=== PATIENT | female | born 1975 | race Caucasian/White ===

== ENCOUNTER 2018-03-26 06:11 | Outpatient (CLI) | payer BC ==
[~2018-03-26] VITALS: Ht 177.8 cm; Wt 136.1 kg
[~2018-03-26 06:11] MED LIST: ACHYD1T PO; ALPR.25T PO; CALC1TAB88 PO; CPR500T PO; IBP800T PO; METR500T PO; NITR100C3 PO; PHEN37.555 PO; PREN1TAB14 PO; SPRINTEC PO
[2018-03-26] MEDS ORDERED: OMG1KC PO (13:54)
[2018-03-26] MEDS ORDERED: FOLI0.8C PO (13:54)
[2018-03-26] MEDS ORDERED: MULT-35 PO (13:54)
[2018-03-26] MEDS ORDERED: LOSA50TA36 PO (13:54)
[2018-03-26] MEDS ORDERED: HYDR25TA4 PO (13:54)
== END 2018-03-26 14:11 ==
LOC: PREOP 06:11
PROVIDERS: ATTEND Otolaryngology Otolaryngology/Facial Plastic Surgery
DX: Z01.818 Encounter for other preprocedural examination (principal)

== ENCOUNTER 2018-03-29 05:52 | Day surgery (SDC) | payer BC ==
[~2018-03-29] VITALS: Ht 177.8 cm; Wt 136.1 kg
[~2018-03-29 05:52] MED LIST changes: +FOLI0.8C PO; +HYDR25TA4 PO; +LOSA50TA36 PO; +MULT-35 PO; +OMG1KC PO
--- OUTSIDE RECORDS SUMMARY | 2018-03-29 05:56 | XMS REPORT ---
Author SHAZIA Granger [facility] Address [address] [facility] [address] [place], [place] [id number] Care Team Providers Care Metal Furniture Panel Coverer Name Role Phone SHAZIA OLIVEIRA PCP Unavailable SHAZIA OLIVEIRA PreferredProvider Unavailable Allergies and Adverse Reactions Name Reaction Notes NO KNOWN DRUG ALLERGIES Plan of Treatment Planned Activity Comments Planned Date Planned Time Plan/Goal CBC with Differential 03/16/2017 12:00 AM CMP 03/16/2017 12:00 AM .Lipid Panel 03/16/2017 12:00 AM Medications Active Name Start Date Estimated Completion Date SIG Comments methyldopa 250 mg oral tablet Zyrtec 10 mg oral tablet take 1 tablet (10 mg) by oral route once daily Flonase Allergy Relief 50 mcg/actuation nasal spray,suspension 07/30/2016 inhale 1 spray (50 mcg) in each nostril by intranasal route once daily Tessalon Perles 100 mg oral capsule 08/03/2016 take 1 capsule (100 mg) by oral route 3 times per day as needed for cough Name Start Date Expiration Date SIG Comments Zithromax Z-Sharad 250 mg oral tablet 12/07/2013 Take 2 tablets the first day (500 mg) followed by 1 tablet (250 mg) days 2-5. for 5 days amoxicillin-pot clavulanate 875-125 mg oral tablet 01/14/2015 01/21/2015 take 1 tablet by oral route every 12 hours for 7 days Levaquin 500 mg oral tablet 01/31/2015 02/10/2015 take 1 tablet (500 mg) by oral route once daily for 10 days azithromycin 500 mg oral tablet 03/25/2016 03/30/2016 take 1 tablet (500 mg) by oral route once daily x 5 days Macrobid 100 mg oral capsule 07/22/2016 07/29/2016 take 1 capsule (100 mg) by oral route every 12 hours with food for 7 days Augmentin 875-125 mg oral tablet 07/30/2016 08/06/2016 take 1 tablet by oral route every 12 hours for 7 days Levaquin 750 mg oral tablet 08/03/2016 08/10/2016 take 1 tablet (750 mg) by oral route once daily for 7 days clindamycin HCl 300 mg oral capsule 09/03/2016 09/13/2016 take 1 capsule by oral route every 8 hours for 10 days hydrocodone-acetaminophen 5-325 mg oral tablet 09/03/2016 09/08/2016 take 1 tablet by oral route every 6 hours as needed for pain for 5 days Discontinued Name Start Date Discontinued Date SIG Comments promethazine-codeine 6.25-10 mg/5 mL oral syrup 01/31/2015 03/25/2016 take 5 milliliters by oral route every 4-6 hours as needed, not to exceed 30 mL in 24 hours Problem List Description Status Onset Hypertension Active Vital Signs Date Time BP-Sys(mm[Hg] BP-Breanne(mm[Hg]) HR(bpm) RR(rpm) Temp WT HT HC BMI BSA BMI Percentile O2 Sat(%) 09/03/2016 10:59:00 AM 160 mmHg 100 mmHg 75 bpm 18 rpm 98.1 F 309 lbs 70 in 44.34 kg/m2 2.63 m2 98 % 08/03/2016 5:40:00 PM 134 mmHg 76 mmHg 74 bpm 18 rpm 97.6 F 320 lbs 70 in 45.9147 kg/m 2.6775 m 99 % 07/30/2016 12:00:00 PM 143 mmHg 94 mmHg 77 bpm 20 rpm 97.8 F 316.4 lbs 70 in 45.40 kg/m2 2.66 m2 100 % 07/22/2016 5:33:00 PM 132 mmHg 72 mmHg 66 bpm 18 rpm 98.3 F 319.5 lbs 98 % 03/25/2016 5:09:00 PM 152 mmHg 90 mmHg 67 bpm 20 rpm 98.2 F 324 lbs 70 in 46.49 kg/m2 2.69 m2 99 % 01/31/2015 9:12:00 AM 138 mmHg 88 mmHg 74 bpm 18 rpm 98.1 F 306 lbs 70 in 43.906 kg/m 2.6182 m 98 % 01/14/2015 6:04:00 PM 152 mmHg 90 mmHg 75 bpm 18 rpm 98.2 F 314.5 lbs 70 in 45.13 kg/m2 2.65 m2 98 % 12/07/2013 10:53:00 AM 126 mmHg 68 mmHg 72 bpm 18 rpm 97.7 F 309 lbs 70 in 44.3364 kg/m 2.631 m 97 % 09/22/2009 5:00:00 PM 152 mmHg 94 mmHg 88 bpm 280 lbs 09/15/2009 4:47:00 PM 138 mmHg 93 mmHg 183 lbs 09/11/2009 3:49:00 PM 113 mmHg 70 mmHg 80 bpm 283 lbs 09/03/2009 10:04:00 AM 139 mmHg 90 mmHg 85 bpm 279 lbs 70 in 40.0319 kg/m 2.5001 m Social History Name Description Comments Tobacco Use 4 cigs a day Alcohol Use - Rare History of Procedures Date Ordered Description Order Status 09/11/2009 12:00 AM DESTRUCT B9 LESION 1-14 Reviewed 03/25/2016 12:00 AM THER/PROPH/DIAG INJ SC/IM Reviewed 03/25/2016 12:00 AM Decadron, Per 1 Mg [facility]# [id number] Reviewed 03/25/2016 12:00 AM Depo-Medrol 40mg Reviewed 07/22/2016 5:43 PM URINALYSIS AUTO W/O SCOPE Reviewed 07/22/2016 12:00 AM URNLS DIP STICK/TABLET RGNT AUTO W/O MICROSCOPY Reviewed 03/16/2017 12:00 AM ROUTINE VENIPUNCTURE Reviewed 09/22/2009 12:00 AM DESTROY VULVA LESIONS SIM Reviewed 09/03/2009 12:00 AM ASSAY OF PROLACTIN Reviewed 09/03/2009 12:00 AM ASSAY THYROID STIM HORMONE Reviewed 09/03/2009 12:00 AM CYTOPATH C/V THIN LAYER Reviewed 09/03/2009 12:00 AM Hpv Testing Reviewed 09/03/2009 12:00 AM DESTRUCT B9 LESION 1-14 Reviewed 01/31/2015 12:00 AM THER/PROPH/DIAG INJ SC/IM Reviewed 01/31/2015 12:00 AM Decadron, Per 1 Mg [facility]# [id number] Reviewed 01/31/2015 12:00 AM Depo-Medrol, Per 80 Mg [facility]#[id number] Reviewed Results Summary Date and Description Results 07/22/2016 5:43 PM Clarity Ur clear Color Ur lt yellow Glucose Ur-sCnc neg Bilirub Ur Ql Strip neg Ketones Ur Ql Strip neg Sp Gr Ur Qn 1.010 Hgb Ur Ql Strip neg pH Ur-LsCnc 6.0 Prot Ur Ql Strip neg Urobilinogen Ur-mCnc 0.2.E.U./dl Nitrite Ur Ql Strip neg WBC Est Ur Ql Strip neg 07/22/2016 6:56 PM COLOR YELLOW APPEARANCE CLEAR SPEC GRAV 1.020 pH 6.0 PROTEIN NEGATIVE GLUCOSE NEGATIVE mg/dLKETONE NEGATIVE BILIRUBIN NEGATIVE BLOOD TRACE-LYSED NITRITE NEGATIVE LEUK SCREEN NEGATIVE MICRO INDICATED? SEE BELOW WBC /HPF 0-5 RBC/HPF 0-5 CASTS/LPF NEGATIVE /LPFCRYSTALS NEGATIVE MUCOUS THRDS FEW BACTERIA FEW EPITH CELLS FEW SQUAMOUS /HPFTRICHOMONAS NEGATIVE YEAST NEGATIVE CULT SET UP? NO History Of Immunizations Not available. History of Past Illness Name Date of Onset Comments Amenorrhea Sep 03 2009 10:14AM Warts (viral; digitate;filiform;infectious) Sep 03 2009 10:14AM Routine gynecological examination Sep 03 2009 10:14AM Condyloma Acuminatum Sep 11 2009 4:23PM Condyloma Acuminatum Sep 22 2009 6:45PM Hypertension Upper Respiratory Infections Dec 07 2013 10:56AM Sinusitis, Acute Dec 07 2013 10:56AM Strep Throat Dec 07 2013 10:56AM Sinusitis Jan 14 2015 6:10PM Respiratory infection Jan 31 2015 9:15AM Maxillary Sinusitis, Acute Mar 25 2016 5:11PM Acute Pharyngitis Mar 25 2016 5:11PM Headache Mar 25 2016 5:11PM Frequency of urination Jul 22 2016 5:36PM Urgency of urination Jul 22 2016 5:36PM Suprapubic abdominal pain Jul 22 2016 5:36PM Cystitis, Acute Jul 22 2016 5:36PM Cough Jul 30 2016 12:05PM Upper Respiratory Infections Jul 30 2016 12:05PM Acute non-recurrent maxillary sinusitis Jul 30 2016 12:05PM Upper respiratory infection Aug 03 2016 5:42PM Abscessed tooth Sep 03 2016 11:03AM Hypertension Mar 16 2017 11:04AM Obesity Mar 16 2017 11:04AM Hyperlipidemia Mar 16 2017 11:04AM Payers Insurance Name Company Name Plan Name Plan Number Policy Number Policy Group Number Start Date [facility] [id number] N/A [facility] [id number] N/A History of Encounters Visit Date Visit Type Provider 03/16/2017 Office visit SHAZIA BUSTOS 09/03/2016 Office visit Josey Farmer RETAIL SALESMAN 08/03/2016 Office visit Wili Hannah PA-C 07/30/2016 Office visit Alis Mccollum RETAIL SALESMAN 07/22/2016 Office visit Alis Mccollum RETAIL SALESMAN 03/25/2016 Office visit Eugenia Watts RETAIL SALESMAN 01/31/2015 Office visit 01/31/2015 Office visit Marisela Fatima RETAIL SALESMAN 01/14/2015 Office visit Tulio Hammer RETAIL SALESMAN 12/07/2013 Office visit Alis Mccollum RETAIL SALESMAN 09/22/2009 Office visit Luis Enrique Ricardo MD 09/15/2009 Office visit Luis Enrique Ricardo MD 09/11/2009 Office visit Luis Enrique Ricardo MD 09/03/2009 Office visit Luis Enrique Ricardo MD
--- OUTSIDE RECORDS SUMMARY | 2018-03-29 05:56 | XMS REPORT ---
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 Medications Active Name Start Date Estimated Completion Date SIG Comments methyldopa oral tablet 250 mg promethazine-codeine oral syrup 6.25-10 mg/5 mL 01/31/2015 take 5 milliliters by oral route every 4-6 hours as needed, not to exceed 30 mL in 24 hours Levaquin oral tablet 500 mg 01/31/2015 02/10/2015 take 1 tablet (500 mg) by oral route once daily for 10 days Name Start Date Expiration Date SIG Comments Zithromax Z-Sharad Oral Tab 250 MG 12/07/2013 Take 2 tablets the first day ( 500 mg) followed by 1 tablet (250 mg) days 2-5. for 5 days amoxicillin-pot clavulanate oral tablet 875-125 mg 01/14/2015 01/21/2015 take 1 tablet by oral route every 12 hours for 7 days Problem List Description Status Onset Hypertension Active Vital Signs Date Time BP-Sys(mm[Hg] BP-Breanne(mm[Hg]) HR(bpm) RR(rpm) Temp WT HT HC BMI BSA BMI Percentile O2 Sat(%) 01/31/2015 9:12:00 AM 138 mmHg 88 mmHg 74 bpm 18 rpm 98.1 F 306 lbs 70 in 43.91 kg/m2 2.62 m2 98 % 01/14/2015 6:04:00 PM 152 mmHg 90 mmHg 75 bpm 18 rpm 98.2 F 314.5 lbs 70 in 45.1256 kg/m 2.6544 m 98 % 12/07/2013 10:53:00 AM 126 mmHg 68 mmHg 72 bpm 18 rpm 97.7 F 309 lbs 70 in 44.34 kg/m2 2.63 m2 97 % 09/22/2009 5:00:00 PM 152 mmHg 94 mmHg 88 bpm 280 lbs 09/15/2009 4:47:00 PM 138 mmHg 93 mmHg 183 lbs 09/11/2009 3:49:00 PM 113 mmHg 70 mmHg 80 bpm 283 lbs 09/03/2009 10:04:00 AM 139 mmHg 90 mmHg 85 bpm 279 lbs 70 in 40.03 kg/m2 2.50 m2 Social History Name Description Comments Tobacco Use 4 cigs a day Alcohol Use - Rare History of Procedures Date Ordered Description Order Status 09/11/2009 12:00 AM DESTRUCT B9 LESION 1-14 Reviewed 09/22/2009 12:00 AM DESTROY VULVA LESIONS SIM Reviewed 09/03/2009 12:00 AM ASSAY OF PROLACTIN Reviewed 09/03/2009 12:00 AM ASSAY THYROID STIM HORMONE Reviewed 09/03/2009 12:00 AM CYTOPATH C/V THIN LAYER Reviewed 09/03/2009 12:00 AM Hpv Testing Reviewed 09/03/2009 12:00 AM DESTRUCT B9 LESION 1-14 Reviewed 01/31/2015 12:00 AM THER/PROPH/DIAG INJ SC/IM Reviewed Results Summary Not available. History Of Immunizations Not available. History of [...] 6:10PM Respiratory infection Jan 31 2015 9:15AM Payers Insurance Name Company Name Plan Name Plan Number Policy Number Policy Group Number Start Date [facility] [id number] N/A [facility] [id number] N/A History of Encounters Visit Date Visit Type Provider 01/31/2015 Office visit Marisela Fatima VIBRATION TECHNICIAN 01/14/2015 Office visit Tulio Hammer VIBRATION TECHNICIAN 12/07/2013 Office visit Alis Mccollum VIBRATION TECHNICIAN 09/22/2009 Office visit Luis Enrique Ricardo MD 09/15/2009 Office visit Luis Enrique Ricardo MD 09/11/2009 Office visit Luis Enrique Ricardo MD 09/03/2009 Office visit Luis Enrique Ricardo MD
--- OUTSIDE RECORDS SUMMARY | 2018-03-29 05:57 | XMS REPORT ---
Author Author Alis Mccollum [facility] Address [address] [place], [place] [id number] Care Team Providers Care Information Security Specialist Name Role Phone Alis Mccollum PCP Unavailable Allergies and Adverse Reactions Name Reaction Notes NO KNOWN DRUG ALLERGIES Plan of Treatment Not available. Medications Active Name Start Date Estimated Completion Date SIG Comments methyldopa 250 mg oral tablet Zyrtec 10 mg oral tablet take 1 tablet (10 mg) by oral route once daily Macrobid 100 mg oral capsule 07/22/2016 07/29/2016 take 1 capsule (100 mg) by oral route every 12 hours with food for 7 days Name Start Date Expiration Date SIG [...] oral route once daily x 5 days Discontinued Name Start Date Discontinued Date SIG Comments promethazine-codeine 6.25-10 mg/5 mL oral syrup 01/31/2015 03/25/2016 take 5 milliliters by oral route every 4-6 hours as needed, not to exceed 30 mL in 24 hours Problem List Description Status Onset Hypertension Active Vital Signs Date Time BP-Sys(mm[Hg] BP-Breanne(mm[Hg]) HR(bpm) RR(rpm) Temp WT HT HC BMI BSA BMI Percentile O2 Sat(%) 07/22/2016 5:33:00 PM 132 mmHg 72 mmHg 66 bpm 18 rpm 98.3 F 319.5 lbs 98 % 03/25/2016 5:09:00 PM 152 mmHg 90 mmHg 67 bpm 20 rpm 98.2 F 324 lbs 70 in 46.4887 kg/m 2.6941 m 99 % 01/31/2015 9:12:00 AM 138 mmHg [...] 03/25/2016 12:00 AM Decadron, Per 1 Mg [facility]# [id number] Reviewed 03/25/2016 12:00 AM Depo-Medrol 40mg Reviewed 07/22/2016 5:43 PM URINALYSIS AUTO W/O SCOPE Reviewed 07/22/2016 12:00 AM URNLS DIP STICK/TABLET RGNT AUTO W/O MICROSCOPY Reviewed 09/22/2009 12:00 AM DESTROY VULVA LESIONS SIM Reviewed 09/03/2009 12:00 AM ASSAY OF PROLACTIN Reviewed 09/03/2009 12:00 AM ASSAY THYROID STIM HORMONE Reviewed 09/03/2009 12:00 AM CYTOPATH C/V THIN LAYER Reviewed 09/03/2009 12:00 AM Hpv Testing Reviewed 09/03/2009 12:00 AM DESTRUCT B9 LESION 1-14 Reviewed 01/31/2015 12:00 AM THER/PROPH/DIAG INJ SC/IM Reviewed 01/31/2015 12:00 AM Decadron, Per 1 Mg [facility]# [id number] Reviewed 01/31/2015 12:00 AM Depo-Medrol, Per 80 Mg [facility]#[id number] Reviewed Results Summary Data and Description Results 07/22/2016 5:43 PM Clarity [...] BLOOD TRACE-LYSED NITRITE NEGATIVE LEUK SCREEN NEGATIVE CASTS/LPF NEGATIVE / LPFCRYSTALS NEGATIVE MUCOUS THRDS FEW BACTERIA FEW EPITH CELLS FEW SQUAMOUS / HPFTRICHOMONAS NEGATIVE YEAST NEGATIVE History Of Immunizations Not available. History of [...] 5:36PM Cystitis, Acute Jul 22 2016 5:36PM Payers Insurance Name Company Name Plan Name Plan Number Policy Number Policy Group Number Start Date [id number] [facility] [id number] N/A History of Encounters Visit Date Visit Type Provider 07/22/2016 Office visit Alis Mccollum FUEL CELL BINDER 03/25/2016 Office visit Eugenia Watts FUEL CELL BINDER 01/31/2015 Office visit 01/31/2015 Office visit Marisela Fatima FUEL CELL BINDER 01/14/2015 Office visit Tulio Hammer FUEL CELL BINDER 12/07/2013 Office visit Alis Mccollum FUEL CELL BINDER 09/22/2009 Office visit Luis Enrique Ricardo MD 09/15/2009 Office visit Luis Enrique Ricardo MD 09/11/2009 Office visit Luis Enrique Ricardo MD 09/03/2009 Office visit Luis Enrique Ricardo MD
--- OUTSIDE RECORDS SUMMARY | 2018-03-29 05:57 | XMS REPORT ---
Author Author SHAZIA OLIVEIRA [facility] Address [address] [place], [place] [phone] Care Team Providers Care Aircraft Maintenance Manager Name Role Phone SHAZIA OLIVEIRA PCP Unavailable SHAZIA OLIVEIRA PreferredProvider Unavailable Allergies and Adverse Reactions Name Reaction Notes NO KNOWN DRUG ALLERGIES Plan of Treatment Not available. Medications Active Name Start Date Estimated Completion Date SIG Comments lisinopril-hydrochlorothiazide 10-12.5 mg oral tablet 03/17/2017 09/13/2017 take 1 tablet by oral route once daily for 30 days Zyrtec 10 mg oral tablet 03/29/2017 take 1 tablet (10 mg) by oral route once daily Name Start Date Expiration Date SIG Comments [...] Name Start Date Discontinued Date SIG Comments methyldopa 250 mg oral tablet 03/17/2017 promethazine-codeine 6.25-10 mg/5 mL oral syrup 01/31/2015 03/25/2016 take 5 milliliters by oral route every 4-6 hours as needed, not to exceed 30 mL in 24 hours Flonase Allergy Relief 50 mcg/actuation nasal spray,suspension 07/30/201603/17 inhale 1 spray (50 mcg) in each nostril by intranasal route once daily Tessalon Perles 100 mg oral capsule 08/03/2016 03/17/2017 take 1 capsule (100 mg) by oral route 3 times per day as needed for cough Problem List Description Status Onset Hypertension Active Essential hypertension Active 03/17/2017 Medication management Active 03/17/2017 Environmental and seasonal allergies Active 03/17/2017 Vital Signs Date Time BP-Sys(mm[Hg] BP-Breanne(mm[Hg]) HR(bpm) RR(rpm) Temp WT HT HC BMI BSA BMI Percentile O2 Sat(%) 03/16/2017 1:17:00 PM 150 mmHg 90 mmHg 79 bpm 16 rpm 98.3 F 323 lbs 70 in 46.35 kg/m2 2.69 m2 97 % 09/03/2016 10:59:00 AM 160 mmHg 100 mmHg 75 bpm 18 rpm 98.1 F 309 lbs 70 in 44.3364 kg/m 2.631 m 98 % 08/03/2016 5:40:00 PM 134 mmHg 76 mmHg 74 bpm 18 rpm 97.6 F 320 lbs 70 in 45.91 kg/m2 2.68 m2 99 % 07/30/2016 12:00:00 PM 143 mmHg 94 mmHg 77 bpm 20 rpm 97.8 F 316.4 lbs 70 in 45.3982 kg/m 2.6624 m 100 % 07/22/2016 5:33:00 PM 132 mmHg [...] 03/25/2016 12:00 AM Decadron, Per 1 Mg [facility]# [id number] Reviewed 03/25/2016 12:00 AM Depo-Medrol 40mg Reviewed 07/22/2016 5:43 PM URINALYSIS AUTO W/O SCOPE Reviewed 07/22/2016 12:00 AM URNLS DIP STICK/TABLET RGNT AUTO W/O MICROSCOPY Reviewed 03/16/2017 12:00 AM COMPLETE CBC W/AUTO DIFF WBC Returned 03/16/2017 12:00 AM COMPREHEN METABOLIC PANEL Returned 03/16/2017 12:00 AM LIPID PANEL Returned 03/16/2017 12:00 AM ROUTINE VENIPUNCTURE Reviewed 09/22/2009 [...] 01/31/2015 12:00 AM Decadron, Per 1 Mg [facility]# [id number] Reviewed 01/31/2015 12:00 AM Depo-Medrol, Per 80 Mg [facility]#[id number] Reviewed Results Summary Date and Description Results [...] NEGATIVE YEAST NEGATIVE CULT SET UP? NO 03/16/2017 3:52 PM WBC 6.8 RBC 5.05 HGB 13.60 g/dLHCT 41.10 %MCV 81.0 fLMCH 26.90 pgMCHC 33.10 g/dLRDW SD 39 RDW CV 13.60 %MPV 10.10 fLPLT 316 NRBC# 0.00 NRBC% 0.0 %NEUT 59.60 %%LYMP 32.0 %%MONO 5.80 %%EOS 0.90 %%BASO 1.0 %#NEUT 4.03 #LYMP 2.16 #MONO 0.39 #EOS 0.06 #BASO 0.07 MANUAL DIFF NOT IND GLUCOSE 91.0 mg/ dLSODIUM 137.0 mmol/LPOTASSIUM 4.20 mmol/LCHLORIDE 105.0 mmol/LCO2 24.0 mmol/ LBUN 9.0 mg/dLCREATININE 0.80 mg/dLSGOT/AST 22.0 IU/LSGPT/ALT 32.0 IU/LALK PHOS 85.0 IU/LTOTAL PROTEIN 7.30 g/dLALBUMIN 4.10 g/dLTOTAL BILI 0.40 mg/dLCALCIUM 8.70 mg/dLAGE 41 GFR NonAA 79 GFR AA 96 eGFR >60 mL/min/1.73meGFR AA* >60 TRIGLYCERIDES 98.0 mg/dLCHOLESTEROL 167.0 mg/dLHDL 46.0 mg/dLTOT CHOL/HDL 3.6 LDL (CALC) 101.0 mg/dL History Of Immunizations Not available. History of Past Illness Name Date of Onset Comments Amenorrhea Sep 03 2009 10:14AM Warts (viral; digitate;filiform;infectious) Sep 03 2009 10:14AM Routine gynecological examination Sep 03 2009 10:14AM Condyloma Acuminatum Sep 11 2009 4:23PM Condyloma Acuminatum Sep 22 2009 6:45PM Hypertension Essential hypertension 03/17/2017 Medication management 03/17/2017 Environmental and seasonal allergies 03/17/2017 Upper Respiratory Infections Dec 07 2013 10:56AM [...] 2017 11:04AM Hyperlipidemia Mar 16 2017 11:04AM Essential hypertension Mar 16 2017 1:18PM Medication management Mar 16 2017 1:18PM Environmental and seasonal allergies Mar 16 2017 1:18PM Payers Insurance Name Company Name Plan Name Plan Number Policy Number Policy Group Number Start Date [facility] [id number] N/A [facility] [id number] N/A History of Encounters Visit Date Visit Type Provider 03/16/2017 Office visit SHAZIA BUSTOS 09/03/2016 Office visit Josey Farmer LIQUID YEAST SUPERVISOR 08/03/2016 Office visit Wili Hannah PA-C 07/30/2016 Office visit Alis Mccollum LIQUID YEAST SUPERVISOR 07/22/2016 Office visit Alis Mccollum LIQUID YEAST SUPERVISOR 03/25/2016 Office visit Eugenia Watts LIQUID YEAST SUPERVISOR 01/31/2015 Office visit 01/31/2015 Office visit Marisela Fatima LIQUID YEAST SUPERVISOR 01/14/2015 Office visit Tulio Hammer LIQUID YEAST SUPERVISOR 12/07/2013 Office visit Alis Mccollum LIQUID YEAST SUPERVISOR 09/22/2009 Office visit Luis Enrique Ricardo MD 09/15/2009 Office visit Luis Enrique Ricardo MD 09/11/2009 Office visit Luis Enrique Ricardo MD 09/03/2009 Office visit Luis Enrique Ricardo MD
--- OUTSIDE RECORDS SUMMARY | 2018-03-29 05:57 | XMS REPORT ---
Author Author Josey Farmer [facility] Address [address] [facility] [facility] [address] [place], [place] [id number] Care Team Providers Care Seismograph Observer Name Role Phone Josey Farmer PCP Unavailable Allergies and Adverse Reactions Name [...] oral route once daily for 7 days Discontinued Name Start Date Discontinued Date [...] 03/25/2016 12:00 AM Decadron, Per 1 Mg [facility]# [id number] Reviewed 03/25/2016 12:00 AM Depo-Medrol 40mg Reviewed [...] 01/31/2015 12:00 AM Decadron, Per 1 Mg [facility]# [id number] Reviewed 01/31/2015 12:00 AM Depo-Medrol, Per 80 Mg [facility]#[id number] Reviewed Results Summary Data and Description Results [...] Upper respiratory infection Aug 03 2016 5:42PM Payers Insurance Name Company Name Plan Name Plan Number Policy Number Policy Group Number Start Date [facility] [id number] N/A [facility] [id number] N/A History of Encounters Visit Date Visit Type Provider 09/03/2016 Office visit Josey Farmer RETAIL DELIVERY DRIVER 08/03/2016 Office visit Wili Hannah PA-C 07/30/2016 Office visit Alsi Mccollum RETAIL DELIVERY DRIVER 07/22/2016 Office visit Alis Mccollum RETAIL DELIVERY DRIVER 03/25/2016 Office visit Eugenia Watts RETAIL DELIVERY DRIVER 01/31/2015 Office visit 01/31/2015 Office visit Marisela Fatima RETAIL DELIVERY DRIVER 01/14/2015 Office visit Tulio Hammer RETAIL DELIVERY DRIVER 12/07/2013 Office visit Alis Mccollum RETAIL DELIVERY DRIVER 09/22/2009 Office visit Luis Enrique Ricardo MD 09/15/2009 Office visit Luis Enrique Ricardo MD 09/11/2009 Office visit Luis Enrique Ricardo MD 09/03/2009 Office visit Luis Enrique Ricardo MD
--- OUTSIDE RECORDS SUMMARY | 2018-03-29 05:58 | XMS REPORT ---
Author Author Tulio Hammer [facility] Address [address] [facility] [address] [place], [place] [id number] Care Team Providers Care Java Oracle Developer Name Role Phone Tulio Hammer PCP SHAZIA OLIVEIRA PreferredProvider Unavailable Allergies and Adverse [...] HC BMI BSA BMI Percentile O2 Sat(%) 04/24/2017 7:08:00 PM 116 mmHg 79 mmHg 66 bpm 18 rpm 97.9 F 320 lbs 70 in 45.91 kg/m2 2.68 m2 100 % 03/16/2017 1:17:00 PM 150 mmHg 90 mmHg 79 bpm 16 rpm 98.3 F 323 lbs 70 in 46.3452 kg/m 2.69 m 97 % 09/03/2016 10:59:00 AM 160 mmHg [...] 03/25/2016 12:00 AM Decadron, Per 1 Mg [facility]# [address]-28 Reviewed 03/25/2016 12:00 AM Depo-Medrol 40mg Reviewed 07/22/2016 5:43 PM URINALYSIS AUTO W/O SCOPE Reviewed 07/22/2016 12:00 AM URNLS DIP STICK/TABLET RGNT AUTO W/O MICROSCOPY Reviewed 04/24/2017 7:18 PM URINALYSIS AUTO W/O SCOPE Reviewed 04/24/2017 12:00 AM X-RAY EXAM OF ABDOMEN Reviewed 03/16/2017 12:00 AM COMPLETE CBC W/AUTO [...] 01/31/2015 12:00 AM Decadron, Per 1 Mg [facility]# [address]-04 Reviewed 01/31/2015 12:00 AM Depo-Medrol, Per 80 Mg [facility]#6278-4711-24 Reviewed Results Summary Date and Description Results [...] NEGATIVE YEAST NEGATIVE CULT SET UP? NO 04/24/2017 7:18 PM Clarity Ur clear Color Ur lt yellow Glucose Ur-sCnc negative Bilirub Ur Ql Strip negative Ketones Ur Ql Strip negative Sp Gr Ur Qn < =1.005 Hgb Ur Ql Strip negative pH Ur-LsCnc 6.0 Prot Ur Ql Strip negative Urobilinogen Ur-mCnc 0.2 Nitrite Ur Ql Strip negative WBC Est Ur Ql Strip negative History Of Immunizations Not available. 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 Mar 16 2017 11:04AM Family history of cancer Mar 16 2017 11:04AM Family history of diabetes mellitus (DM) Mar 16 2017 11:04AM Payers Insurance Name Company Name Plan Name Plan Number Policy Number Policy Group Number Start Date [facility] [id number] N/A [facility] [id number] N/A History of Encounters Visit Date Visit Type Provider 04/24/2017 Office visit Tulio Hammer CUT OFF SAW OPERATOR PIPE BLANKS 03/16/2017 Office visit SHAZIA BUSTOS 09/03/2016 Office visit Josey Farmer CUT OFF SAW OPERATOR PIPE BLANKS 08/03/2016 Office visit Wili Hannah PA-C 07/30/2016 Office visit Alis Mccollum CUT OFF SAW OPERATOR PIPE BLANKS 07/22/2016 Office visit Alis Mccollum CUT OFF SAW OPERATOR PIPE BLANKS 03/25/2016 Office visit Eugenia Watts CUT OFF SAW OPERATOR PIPE BLANKS 01/31/2015 Office visit 01/31/2015 Office visit Marisela Fatima CUT OFF SAW OPERATOR PIPE BLANKS 01/14/2015 Office visit Tulio Hammer CUT OFF SAW OPERATOR PIPE BLANKS 12/07/2013 Office visit Alis Mccollum CUT OFF SAW OPERATOR PIPE BLANKS 09/22/2009 Office visit Luis Enrique Ricardo MD 09/15/2009 Office visit Luis Enrique Ricardo MD 09/11/2009 Office visit Luis Enrique Ricardo MD 09/03/2009 Office visit Luis Enrique Ricardo MD
--- OUTSIDE RECORDS SUMMARY | 2018-03-29 05:58 | XMS REPORT ---
Author SHAZIA Granger [facility] Address [address] [facility] [address] [place], [place] [address] Care Team Providers Care Federal Appellate Law Clerk Name Role Phone SHAZIA OLIVEIRA PCP Unavailable SHAZIA OLIVEIRA PreferredProvider Unavailable Allergies and Adverse Reactions Name Reaction Notes NO KNOWN DRUG ALLERGIES Plan of Treatment Not available. Medications Active Name Start Date Estimated Completion Date SIG Comments Zyrtec 10 mg oral tablet 03/29/2017 take 1 tablet (10 mg) by oral route once daily lisinopril-hydrochlorothiazide 10-12.5 mg oral tablet 06/15/2017 take 1 tablet by oral route once daily for 30 days fluticasone 50 mcg/actuation nasal spray,suspension 06/15/2017 inhale 1 spray (50 mcg) in each nostril by intranasal route 2 times per day Suphedrine 30 mg oral tablet 08/10/2017 08/10/2017 take 1 tablets by oral route every 4 hours as needed Name Start Date Expiration Date SIG Comments [...] HC BMI BSA BMI Percentile O2 Sat(%) 08/09/2017 2:29:00 PM 132 mmHg 88 mmHg 78 bpm 16 rpm 97 F 311 lbs 70 in 44.62 kg/m2 2.64 m2 98 % 06/14/2017 3:51:00 PM 120 mmHg 72 mmHg 80 bpm 16 rpm 97.3 F 319 lbs 70 in 45.7713 kg/m 2.6733 m 99 % 04/24/2017 7:08:00 PM 116 mmHg 79 mmHg [...] 12:00 AM Decadron, Per 1 Mg [facility]# [address]-81 Reviewed 03/25/2016 12:00 AM Depo-Medrol 40mg Reviewed [...] Returned 03/16/2017 12:00 AM ROUTINE VENIPUNCTURE Reviewed 06/14/2017 12:00 AM THER/PROPH/DIAG INJ SC/IM Reviewed 06/14/2017 12:00 AM Decadron 8mg Injection Reviewed 06/14/2017 12:00 AM Depo-Medrol 80mg Injection Reviewed 09/22/2009 12:00 AM DESTROY VULVA LESIONS SIM Reviewed 09/03/2009 12:00 AM ASSAY OF PROLACTIN Reviewed 09/03/2009 12:00 AM ASSAY THYROID STIM HORMONE Reviewed 09/03/2009 12:00 AM CYTOPATH C/V THIN LAYER Reviewed 09/03/2009 12:00 AM Hpv Testing Reviewed 09/03/2009 12:00 AM DESTRUCT B9 LESION 1-14 Reviewed 01/31/2015 12:00 AM THER/PROPH/DIAG INJ SC/IM Reviewed 01/31/2015 12:00 AM Decadron, Per 1 Mg [facility]# [address]-59 Reviewed 01/31/2015 12:00 AM Depo-Medrol, Per 80 Mg [facility]#[id number] Reviewed Results Summary Date and Description Results [...] lower quadrant pain Apr 24 2017 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 Mar 16 2017 11:04AM Family history of cancer Mar 16 2017 11:04AM Family history of diabetes mellitus (DM) Mar 16 2017 11:04AM Eustachian tube dysfunction, bilateral Jun 14 2017 3:51PM Moderate Acute Purulent postnasal drainage Jun 14 2017 3:51PM Moderate Acute Sinus pressure Worsening Jun 14 2017 3:51PM Acute seasonal allergic rhinitis, unspecified trigger Jun 14 2017 3:51PM Dysfunction of both eustachian tubes Aug 09 2017 2:29PM Purulent postnasal drainage Aug 09 2017 2:29PM Ear pressure, left Aug 09 2017 2:29PM Moderate Chronic Recurrent Environmental and seasonal allergies Aug 09 2017 2 :29PM Payers Insurance Name Company Name Plan Name Plan Number Policy Number Policy Group Number Start Date [employer] [id number] N/A [facility] [id number] N/A History of Encounters Visit Date Visit Type Provider 08/09/2017 Office visit SHAZIA BUSTOS 06/14/2017 Office visit SHAZIA BUSTOS 04/24/2017 Office visit Tulio Hammer AUTOMOTIVE REPAIR TECHNICIAN 03/16/2017 Office visit SHAZIA BUSTOS 09/03/2016 Office visit Josey Farmer AUTOMOTIVE REPAIR TECHNICIAN 08/03/2016 Office visit Wili Hannah PA-C 07/30/2016 Office visit Alis Mccollum AUTOMOTIVE REPAIR TECHNICIAN 07/22/2016 Office visit Alis Mccollum AUTOMOTIVE REPAIR TECHNICIAN 03/25/2016 Office visit Eugenia Watts AUTOMOTIVE REPAIR TECHNICIAN 01/31/2015 Office visit 01/31/2015 Office visit Marisela Fatima AUTOMOTIVE REPAIR TECHNICIAN 01/14/2015 Office visit Tulio Hammer AUTOMOTIVE REPAIR TECHNICIAN 12/07/2013 Office visit Alis Mccollum AUTOMOTIVE REPAIR TECHNICIAN 09/22/2009 Office visit Luis Enrique Ricardo MD 09/15/2009 Office visit Luis Enrique Ricardo MD 09/11/2009 Office visit Luis Enrique Ricardo MD 09/03/2009 Office visit Luis Enrique Ricardo MD
--- OUTSIDE RECORDS SUMMARY | 2018-03-29 05:59 | XMS REPORT ---
Author Author Alis Mccollum [facility] Address [address] [address] [place], [place] [phone] Care Team Providers Care Patternmaker Sample Name Role Phone Alis Mccollum PCP Unavailable [...] 03/25/2016 12:00 AM Decadron, Per 1 Mg [facility]# [address]-05 Reviewed 03/25/2016 12:00 AM Depo-Medrol 40mg Reviewed [...] 01/31/2015 12:00 AM Decadron, Per 1 Mg [facility]# [address]-18 Reviewed 01/31/2015 12:00 AM Depo-Medrol, Per 80 Mg [facility]#1340-4848-56 Reviewed Results Summary Data and Description Results [...] Policy Number Policy Group Number Start Date [id number] [facility] [id number] N/A History of Encounters Visit Date Visit Type Provider 07/22/2016 Office visit Alis Mccollum DATA MANAGEMENT 03/25/2016 Office visit Eugenia Watts DATA MANAGEMENT 01/31/2015 Office visit 01/31/2015 Office visit Marisela Fatima DATA MANAGEMENT 01/14/2015 Office visit Tulio Hammer DATA MANAGEMENT 12/07/2013 Office visit Alis Mccollum DATA MANAGEMENT 09/22/2009 Office visit Luis Enrique Ricardo MD 09/15/2009 Office visit Luis Enrique Ricardo MD 09/11/2009 Office visit Luis Enrique Ricardo MD 09/03/2009 Office visit Luis Enrique Ricardo MD
--- OUTSIDE RECORDS SUMMARY | 2018-03-29 05:59 | XMS REPORT ---
Author Author Tulio Hammer [facility] Address [address] [facility] [address] [place], [place] [phone] Care Team Providers Care Oxygen Therapy Teacher Name Role Phone Tulio Hammer PCP SHAZIA [...] 03/25/2016 12:00 AM Decadron, Per 1 Mg [facility]# [address]-59 Reviewed 03/25/2016 12:00 AM Depo-Medrol 40mg Reviewed 07/22/2016 5:43 PM URINALYSIS AUTO W/O SCOPE Reviewed 07/22/2016 12:00 AM URNLS DIP STICK/TABLET RGNT AUTO W/O MICROSCOPY Reviewed 03/16/2017 12:00 AM COMPLETE CBC W/AUTO DIFF WBC Returned 03/16/2017 12:00 AM COMPREHEN METABOLIC PANEL Returned 03/16/2017 12:00 AM LIPID PANEL Returned 03/16/2017 12:00 AM ROUTINE VENIPUNCTURE Reviewed 04/24/2017 7:18 PM URINALYSIS AUTO W/O SCOPE Reviewed 04/24/2017 12:00 AM X-RAY EXAM OF ABDOMEN Reviewed 09/22/2009 12:00 AM DESTROY VULVA LESIONS SIM Reviewed 09/03/2009 12:00 AM ASSAY OF PROLACTIN Reviewed 09/03/2009 12:00 AM ASSAY THYROID STIM HORMONE Reviewed 09/03/2009 12:00 AM CYTOPATH C/V THIN LAYER Reviewed 09/03/2009 12:00 AM Hpv Testing Reviewed 09/03/2009 12:00 AM DESTRUCT B9 LESION 1-14 Reviewed 01/31/2015 12:00 AM THER/PROPH/DIAG INJ SC/IM Reviewed 01/31/2015 12:00 AM Decadron, Per 1 Mg [facility]# [address]-14 Reviewed 01/31/2015 12:00 AM Depo-Medrol, Per 80 Mg [facility]#5133-4751-59 Reviewed Results Summary Date and Description Results [...] mg/dLTOT CHOL/HDL 3.6 LDL (CALC) 101.0 mg/dL 04/24/2017 7:18 PM Clarity Ur clear Color [...] lower quadrant pain Apr 24 2017 7:12PM Payers Insurance Name Company Name Plan Name Plan Number Policy Number Policy Group Number [id number] [id number] N/A History of Encounters Visit Date Visit Type Provider 04/24/2017 Office visit Tulio Hammer TOBACCO CLOTH RECLAIMER 03/16/2017 Office visit SHAZIA BUSTOS 09/03/2016 Office visit Josey Farmer TOBACCO CLOTH RECLAIMER 08/03/2016 Office visit Wili Hannah PA-C 07/30/2016 Office visit Alis Mccollum TOBACCO CLOTH RECLAIMER 07/22/2016 Office visit Alis Mccollum TOBACCO CLOTH RECLAIMER 03/25/2016 Office visit Eugenia Watts TOBACCO CLOTH RECLAIMER 01/31/2015 Office visit 01/31/2015 Office visit Marisela Fatima TOBACCO CLOTH RECLAIMER 01/14/2015 Office visit Tulio Hammer TOBACCO CLOTH RECLAIMER 12/07/2013 Office visit Alis Mccollum TOBACCO CLOTH RECLAIMER 09/22/2009 Office visit Luis Enrique Ricardo MD 09/15/2009 Office visit Luis Enrique Ricardo MD 09/11/2009 Office visit Luis Enrique Ricardo MD 09/03/2009 Office visit Luis Enrique Ricardo MD
--- OUTSIDE RECORDS SUMMARY | 2018-03-29 05:59 | XMS REPORT ---
Author SHAZIA Granger [facility] Address [address] [facility] [address] [place], [place] [phone] Care Team Providers Care Market President Name Role Phone SHAZIA OLIVEIRA PCP Unavailable SHAZIA OLIVEIRA PreferredProvider Unavailable Allergies and Adverse Reactions Name Reaction Notes NO KNOWN DRUG ALLERGIES Plan of Treatment Planned Activity Comments Planned Date Planned Time Plan/Goal Injection, Subcutaneous/IM 06/14/2017 12:00 AM Medications Active Name Start Date Estimated Completion Date SIG Comments lisinopril-hydrochlorothiazide 10-12.5 mg oral tablet 03/17/2017 09/13/2017 take 1 tablet by oral route once daily for 30 days Zyrtec 10 mg oral tablet 03/29/2017 take 1 tablet (10 mg) by oral route once daily fluticasone 50 mcg/actuation nasal spray,suspension 06/14/2017 inhale 1 spray (50 mcg) in each nostril by intranasal route 2 times per day Name Start Date Expiration Date SIG Comments [...] HC BMI BSA BMI Percentile O2 Sat(%) 06/14/2017 3:51:00 PM 120 mmHg 72 mmHg 80 bpm 16 rpm 97.3 F 319 lbs 70 in 45.77 kg/m2 2.67 m2 99 % 04/24/2017 7:08:00 PM 116 mmHg 79 mmHg 66 bpm 18 rpm 97.9 F 320 lbs 70 in 45.9147 kg/m 2.6775 m 100 % 03/16/2017 1:17:00 PM 150 mmHg [...] 03/25/2016 12:00 AM Decadron, Per 1 Mg [facility]# [address]-96 Reviewed 03/25/2016 12:00 AM Depo-Medrol 40mg Reviewed [...] 01/31/2015 12:00 AM Decadron, Per 1 Mg [facility]# [address]-73 Reviewed 01/31/2015 12:00 AM Depo-Medrol, Per 80 Mg [facility]#8455-3126-50 Reviewed Results Summary Date and Description Results [...] lower quadrant pain 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 Mar 16 2017 11:04AM Family history of cancer Mar 16 2017 11:04AM Family history of diabetes mellitus (DM) Mar 16 2017 11:04AM Eustachian tube dysfunction, bilateral Jun 14 2017 3:51PM Moderate Acute Purulent postnasal drainage Jun 14 2017 3:51PM Moderate Acute Sinus pressure Worsening Jun 14 2017 3:51PM Acute seasonal allergic rhinitis, unspecified trigger Jun 14 2017 3:51PM Payers Insurance Name Company Name Plan Name Plan Number Policy Number Policy Group Number [facility] Date [id number] N/A [facility] [id number] N/A History of Encounters Visit Date Visit Type Provider 06/14/2017 Office visit SHAZIA BUSTOS 04/24/2017 Office visit Tulio Hammer ADHESIVE SPRAYER 03/16/2017 Office visit SHAZIA BUSTOS 09/03/2016 Office visit Josey Farmer ADHESIVE SPRAYER 08/03/2016 Office visit Wili Hannah PA-C 07/30/2016 Office visit Alis Mccollum ADHESIVE SPRAYER 07/22/2016 Office visit Alis Mccollum ADHESIVE SPRAYER 03/25/2016 Office visit Eugenia Watts ADHESIVE SPRAYER 01/31/2015 Office visit 01/31/2015 Office visit Marisela Fatima ADHESIVE SPRAYER 01/14/2015 Office visit Tulio Hammer ADHESIVE SPRAYER 12/07/2013 Office visit Alis Mccollum ADHESIVE SPRAYER 09/22/2009 Office visit Luis Enrique Ricardo MD 09/15/2009 Office visit Luis Enrique Ricardo MD 09/11/2009 Office visit Luis Enrique Ricardo MD 09/03/2009 Office visit Luis Enrique Ricardo MD
--- OUTSIDE RECORDS SUMMARY | 2018-03-29 05:59 | XMS REPORT ---
Author Author Alis Mccollum [facility] Address [address] [facility] [address] [place], [place] [phone] Care Team Providers Care Corporate Counselor Name Role Phone Alis Mccollum PCP Unavailable Allergies and Adverse Reactions Name Reaction Notes NO KNOWN DRUG ALLERGIES Plan of Treatment Not available. Medications Active Name Start Date Estimated Completion Date SIG Comments methyldopa 250 mg oral tablet Zyrtec 10 mg oral tablet take 1 tablet (10 mg) by oral route once daily Augmentin 875-125 mg oral tablet 07/30/2016 08/06/2016 take 1 tablet by oral route every 12 hours for 7 days Flonase Allergy Relief 50 mcg/actuation nasal spray,suspension 07/30/2016 inhale 1 spray (50 mcg) in each nostril by intranasal route once daily Name Start Date Expiration [...] 12 hours with food for 7 days Discontinued Name Start Date Discontinued Date SIG Comments promethazine-codeine 6.25-10 mg/5 mL oral syrup 01/31/2015 03/25/2016 take 5 milliliters by oral route every 4-6 hours as needed, not to exceed 30 mL in 24 hours Problem List Description Status Onset Hypertension Active Vital Signs Date Time BP-Sys(mm[Hg] BP-Breanne(mm[Hg]) HR(bpm) RR(rpm) Temp WT HT HC BMI BSA BMI Percentile O2 Sat(%) 07/30/2016 12:00:00 PM 143 mmHg 94 mmHg [...] bpm 279 lbs 70 in 40.03 kg/m2 2.5001 m Social History Name Description Comments Tobacco Use 4 cigs a day Alcohol Use - Rare History of Procedures Date Ordered Description Order Status 09/11/2009 12:00 AM DESTRUCT B9 LESION 1-14 Reviewed 03/25/2016 12:00 AM THER/PROPH/DIAG INJ SC/IM Reviewed 03/25/2016 12:00 AM Decadron, Per 1 Mg [facility]# [address]-16 Reviewed 03/25/2016 12:00 AM Depo-Medrol 40mg Reviewed [...] 12:00 AM Decadron, Per 1 Mg [facility]# [address]-74 Reviewed 01/31/2015 12:00 AM Depo-Medrol, Per 80 Mg [facility]#1167-3731-74 Reviewed Results Summary Data and Description Results [...] non-recurrent maxillary sinusitis Jul 30 2016 12:05PM Payers Insurance Name Company Name Plan Name Plan Number Policy Number Policy Group Number [id number] [id number] N/A History of Encounters Visit Date Visit Type Provider 07/30/2016 Office visit Alis Mccollum METEOROLOGICAL TECHNICIAN 07/22/2016 Office visit Alis Mccollum METEOROLOGICAL TECHNICIAN 03/25/2016 Office visit Eugenia Watts METEOROLOGICAL TECHNICIAN 01/31/2015 Office visit 01/31/2015 Office visit Marisela Fatima METEOROLOGICAL TECHNICIAN 01/14/2015 Office visit Tulio Hammer METEOROLOGICAL TECHNICIAN 12/07/2013 Office visit Alis Mccollum METEOROLOGICAL TECHNICIAN 09/22/2009 Office visit Luis Enrique Ricardo MD 09/15/2009 Office visit Luis Enrique Ricardo MD 09/11/2009 Office visit Luis Enrique Ricardo MD 09/03/2009 Office visit Luis Enrique Ricardo MD
--- OUTSIDE RECORDS SUMMARY | 2018-03-29 06:01 | XMS REPORT ---
Author Author Josey Farmer [facility] Address [address] [facility] [address] [place], [place] [address] Care Team Providers Care Carpenter Foreman Name Role Phone Josey Farmer PCP Unavailable [...] times per day as needed for cough clindamycin HCl 300 mg oral capsule 09/03/2016 09/13/2016 take 1 capsule by oral route every 8 hours for 10 days Name Start Date Expiration [...] oral route once daily for 7 days hydrocodone-acetaminophen 5-325 mg oral tablet 09/03/2016 [...] 03/25/2016 12:00 AM Decadron, Per [address] [facility]# [address]-78 Reviewed 03/25/2016 12:00 AM Depo-Medrol 40mg Reviewed [...] 01/31/2015 12:00 AM Decadron, Per [address] [facility]# [address]-10 Reviewed 01/31/2015 12:00 AM Depo-Medrol, Per [address] [facility]#5157-7979-51 Reviewed Results Summary Data and Description Results [...] 5:42PM Abscessed tooth Sep 03 2016 11:03AM Payers Insurance Name Company Name Plan Name Plan Number Policy Number Policy Group Number Start Date [facility] [id number] N/A [facility] [id number] N/A History of Encounters Visit Date Visit Type Provider 09/03/2016 Office visit Josey Farmer STAGE SETTING PAINTER APPRENTICE 08/03/2016 Office visit Wili Hannah PA-C 07/30/2016 Office visit Alis Mccollum STAGE SETTING PAINTER APPRENTICE 07/22/2016 Office visit Alis Mccollum STAGE SETTING PAINTER APPRENTICE 03/25/2016 Office visit Eugenia Watts STAGE SETTING PAINTER APPRENTICE 01/31/2015 Office visit 01/31/2015 Office visit Marisela Fatima STAGE SETTING PAINTER APPRENTICE 01/14/2015 Office visit Tulio Hammer STAGE SETTING PAINTER APPRENTICE 12/07/2013 Office visit Alis Mccollum STAGE SETTING PAINTER APPRENTICE 09/22/2009 Office visit Luis Enrique Ricardo MD 09/15/2009 Office visit Luis Enrique iRcardo MD 09/11/2009 Office visit Luis Enrique Ricardo MD 09/03/2009 Office visit Luis Enrique Ricardo MD
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
--- OUTSIDE RECORDS SUMMARY | 2018-03-29 06:03 | XMS REPORT ---
Author Author SHAZIA OLIVEIRA [facility] Address [address] [place], [place] [id number] Care Team Providers Care Cdl Company Flatbed Driver Name Role Phone SHAZIA OLIVEIRA PCP Unavailable SHAZIA OLIVEIRA PreferredProvider Unavailable Allergies and Adverse Reactions Name Reaction Notes NO KNOWN DRUG ALLERGIES Plan of Treatment Not available. Medications Active Name Start Date Estimated Completion Date SIG Comments Zyrtec 10 mg oral tablet take 1 tablet (10 mg) by oral route once daily lisinopril-hydrochlorothiazide 10-12.5 mg oral tablet 03/17/2017 09/13/2017 [...] 03/25/2016 12:00 AM Decadron, Per 1 Mg [facility]# [address]-92 Reviewed 03/25/2016 12:00 AM Depo-Medrol 40mg Reviewed [...] 01/31/2015 12:00 AM Decadron, Per 1 Mg [facility]# [address]-26 Reviewed 01/31/2015 12:00 AM Depo-Medrol, Per 80 Mg [facility]#9933-1485-04 Reviewed Results Summary Date and Description Results [...] Policy Number Policy Group Number Start Date [facility] [id number] N/A [facility] [id number] N/A History of Encounters Visit Date Visit Type Provider 03/16/2017 Office visit SHAZIA BUSTOS 09/03/2016 Office visit Josey Farmer CERTIFIED DIALYSIS TECHNICIAN 08/03/2016 Office visit Wili Hannah PA-C 07/30/2016 Office visit Alis Mccollum CERTIFIED DIALYSIS TECHNICIAN 07/22/2016 Office visit Alis Mccollum CERTIFIED DIALYSIS TECHNICIAN 03/25/2016 Office visit Eugenia Watts CERTIFIED DIALYSIS TECHNICIAN 01/31/2015 Office visit 01/31/2015 Office visit Marisela Fatima CERTIFIED DIALYSIS TECHNICIAN 01/14/2015 Office visit Tulio Hammer CERTIFIED DIALYSIS TECHNICIAN 12/07/2013 Office visit Alis Mccollum CERTIFIED DIALYSIS TECHNICIAN 09/22/2009 Office visit Luis Enrique Ricardo MD 09/15/2009 Office visit Luis Enrique Ricardo MD 09/11/2009 Office visit Luis Enrique Ricardo MD 09/03/2009 Office visit Luis Enrique Ricardo MD
--- OUTSIDE RECORDS SUMMARY | 2018-03-29 06:04 | XMS REPORT ---
Author Author [facility] Organization [facility] Address [address] [place], [place] [id number] Care Team Providers Care Roofing Supervisor Name Role Phone PCP Unavailable Allergies and Adverse Reactions Name Reaction Notes NO KNOWN DRUG ALLERGIES Plan of Treatment Not available. Medications Active Name Start Date Estimated Completion Date SIG Comments methyldopa oral tablet 250 mg amoxicillin-pot clavulanate oral tablet 875-125 mg 01/14/2015 01/21/2015 take 1 tablet by oral route every 12 hours for 7 days Name Start Date Expiration Date SIG Comments Zithromax Z-Sharad Oral Tab 250 MG 12/07/2013 Take 2 tablets the first day ( 500 mg) followed by 1 tablet (250 mg) days 2-5. for 5 days Problem List Description Status Onset Hypertension Active Vital Signs Date Time BP-Sys(mm[Hg] BP-Breanne(mm[Hg]) HR(bpm) RR(rpm) Temp WT HT HC BMI BSA BMI Percentile O2 Sat(%) 01/14/2015 6:04:00 PM 152 mmHg 90 mmHg [...] 12:00 AM DESTRUCT B9 LESION 1-14 Reviewed Results Summary Not available. History Of [...] 2013 10:56AM Sinusitis Jan 14 2015 6:10PM Payers Insurance Name Company Name Plan Name Plan Number Policy Number Policy Group Number Start Date [facility] [id number] N/A [facility] [id number] N/A History of Encounters Visit Date Visit Type Provider 01/14/2015 Office visit Tulio Hammer STAFFING ASSOCIATE 12/07/2013 Office visit Alis Mccollum STAFFING ASSOCIATE 09/22/2009 Office visit Luis Enrique Ricardo MD 09/15/2009 Office visit Luis Enrique Ricardo MD 09/11/2009 Office visit Luis Enrique Ricardo MD 09/03/2009 Office visit Luis Enrique Ricardo MD
[2018-03-29 06:10] VITALS: BP 134/81
[2018-03-29] MEDS: LACTATED RINGERS 1,000 ML IV PRN ×3 (06:25→09:22)
[2018-03-29] MEDS ORDERED: proPOfol 200 MG/20 ML (DIPRIVAN) VIAL IV ONE (06:48)
[2018-03-29] MEDS ORDERED: DEXAMETHASONE 10 MG/ML (DECADRON) 1 ML VIAL ONE (06:48)
[2018-03-29] MEDS ORDERED: ONDANSETRON 4 MG/2 ML (SDV) Z0FRAN ONE (06:48)
[2018-03-29] MEDS ORDERED: LIDOCAINE PF 2% 5 ML (XYLOCAINE) VIAL ONE (06:48)
[2018-03-29] MEDS ORDERED: MIDAZOLAM 2 MG/2 ML (VERSED) VIAL ONE (06:48)
[2018-03-29] MEDS ORDERED: ROCURONIUM 10 MG/ML 5 ML SYRINGE IV ONE ×3 (06:48→09:01)
[2018-03-29] MEDS ORDERED: fentaNYL INJECTION 100 MCG/2 ML AMP ONE ×2 (06:48→10:07)
--- NOTE | 2018-03-29 07:07 | Progress Note-Pre Operative ---
Pre-Operative Progress Note H&P Reviewed The H&P was reviewed, patient examined and no changes noted. Date Seen by Provider: Mar 29, 2018 Time Seen by Provider: 07:00 Date H&P Reviewed: Mar 29, 2018 Time H&P Reviewed: 07:00 Pre-Operative Diagnosis: Right Posterior Tongue Lesion SHAZIA CHAVEZ MD Mar 29, 2018 7:07 am
[2018-03-29] MEDS ORDERED: LIDOCAINE/EPI 1%-1:200,000 (XYLOCAINE) 10 ML VIAL ONE (07:14)
[2018-03-29] MEDS ORDERED: SEVOFLURANE (ULTANE) 15 ML INHAL SOLN ONE ×6 (07:22→09:01)
[2018-03-29] MEDS ORDERED: PHENYLEPHRINE 100 MCG/ML 10 ML (ANESTHESIA) SYR ONE (08:18)
--- NOTE | 2018-03-29 09:35 | Progress Note-Post Operative ---
Post-Operative Progess Note Surgeon (s)/Boiler Welder (s) Surgeon SHAZIA CHAVEZ MD Boiler Welder n/a Pre-Operative Diagnosis Right Posterior Tongue Lesion Post-Operative Diagnosis same Post-Op Procedure Note Date of Procedure: Mar 29, 2018 Name of Procedure Performed: Excision of Right Posterior Tongue Lesion with Repair Description & Findings Description and Findings: n/a Anesthesia Type get Estimated Blood Loss minimal Packing none. 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
[2018-03-29] MEDS ORDERED: morphine INJ 10 MG/ML 1ML (SYR OR VIAL) IVP PRN (09:45)
[2018-03-29] MEDS ORDERED: HYDROcodone/APAP 5 MG/325 MG (LORTAB) TAB PO PRN (09:45)
[2018-03-29] MEDS ORDERED: MEPERIDINE (DEMEROL) INJ 50 MG/ML IVP PRN (09:45)
[2018-03-29] MEDS ORDERED: HYDROcodone/APAP 7.5MG-325 MG/15 ML (LORTAB) UDC PO PRN (09:45)
[2018-03-29] MEDS ORDERED: ACETAMINOPHEN 325 MG TABLET PO PRN (09:45)
[2018-03-29] MEDS ORDERED: ONDANSETRON 4 MG/2 ML (SDV) Z0FRAN IVP PRN (09:45)
[2018-03-29] MEDS ORDERED: GLYCOPYRROLATE 0.2 MG/ML (ROBINUL) 2 ML VIAL ONE (09:50)
[2018-03-29] MEDS ORDERED: NEOSTIGMINE 1 MG/ML 5 ML SYRINGE ONE (09:50)
[2018-03-29] MEDS: fentaNYL INJECTION 100 MCG/2 ML AMP IVP PRN ×3 (10:07→10:20)
[2018-03-29 10:50] VITALS: BP 132/76
[2018-03-29 10:51] VITALS: BP 132/76
[2018-03-29] MEDS ORDERED: LIDOCAINE 2% VISCOUS 15 ML UDC PO PRN (11:00)
[2018-03-29 11:20] VITALS: BP 146/93
[2018-03-29] MEDS ORDERED: diphenhydrAMINE 50 MG/ML INJ (BENADRYL) ONE (11:35)
[2018-03-29] MEDS ORDERED: diphenhydrAMINE 50 MG/ML INJ (BENADRYL) IVP NR (11:59)
--- NOTE | 2018-03-29 13:59 | Anesthesia-General Post-Op ---
General Patient Condition Mental Status/LOC: Same as Preop Cardiovascular: Satisfactory Nausea/Vomiting: Absent Respiratory: Satisfactory Pain: Controlled Complications: Absent Post Op Complications Complications None Follow Up Care/Instructions Patient Instructions None needed. Anesthesia/Patient Condition Patient Condition Patient is doing well, no complaints, stable vital signs, no apparent adverse anesthesia problems. No complications reported per nursing. [place] [facility] [place]: No NICK LEÓN CRNA Mar 29, 2018 13:59
== END 2018-03-29 12:10 | disposition home or self-care (01) ==
LOC: SDC 05:52
PROVIDERS: ATTEND Otolaryngology Otolaryngology/Facial Plastic Surgery
DX: C01 Malignant neoplasm of base of tongue (principal); I10 Essential (primary) hypertension; Z79.899 Other long term (current) drug therapy
CPT/HCPCS: 84703; 87081